=== PATIENT | female | born 1990 | race Caucasian/White ===

== ENCOUNTER 2019-01-26 12:16 | Outpatient (CLI) | payer OTHER ==
[2019-01-26] MEDS ORDERED: GADOBUTROL 7.5 MMOL/7.5 ML VIAL ONE (13:41)
[2019-01-26] MEDS ORDERED: GADOBUTROL 7.5 MMOL/7.5 ML VIAL IVP ONE (14:10)
--- NOTE | 2019-01-27 15:35 | MRI Report ---
Reason: GANGLION, LEFT HERNÁNDEZ Procedure Date: 01/26/2019 Accession Number: [id number] / [id number] Procedure: MRI - Hand LT W/WO CPT Code: FULL RESULT: EXAM: LEFT HAND MRI WITHOUT AND WITH CONTRAST EXAM DATE: 01/26/2019 02:00 PM. CLINICAL HISTORY: Ganglion, left hand. COMPARISON: None. TECHNIQUE: Multiplanar, multisequence T1-weighted and fluid-sensitive sequences of the hand before and after administration of intravenous contrast. IV contrast: 7.5 mL Gadavist. Other: None. FINDINGS: Bones: No fractures or subluxations. No marrow edema or abnormal enhancement. No bone lesions. Cartilage: The articular cartilage is unremarkable. Ligaments: The visualized collateral ligaments are intact. Tendons: The flexor and extensor tendons are intact. Ovoid focus of T1 hypointense and fluid sensitive hyperintense signal with minimal peripheral enhancement at the volar aspect third flexor tendon at the level of the proximal phalanx diaphysis measuring 0.3 x 0.4 x 0.5 cm, AP by transverse by longitudinal.. Musculature: No edema or fatty atrophy. Other: No joint effusions or synovitis. The subcutaneous tissues are unremarkable. No abscess or cellulitis. IMPRESSION: 1. A 0.5 cm cystic focus at the volar aspect third flexor tendon, suggestive of ganglion. Other mass lesion thought less likely given the minimal peripheral enhancement. 2. Underlying third flexor tendon normal in morphology. RADIA
== END 2019-01-26 12:17 | disposition home or self-care (01) ==
LOC: DI 12:16
PROVIDERS: ATTEND Orthopaedic Surgery
DX: M67.442 Ganglion, left hand (principal)
CPT/HCPCS: 73220; A9585

== ENCOUNTER 2019-03-04 07:59 | Day surgery (SDC) | payer OTHER ==
[2019-03-04] MEDS ORDERED: KETOROLAC 30 MG/ML VIAL IVP ONE (08:00)
[2019-03-04] MEDS ORDERED: ONDANSETRON 4 MG/2 ML VIAL IVP ONE (08:00)
[2019-03-04] MEDS ORDERED: fentaNYL 100 MCG/2 ML VIAL IVP ONE (08:00)
[2019-03-04] MEDS ORDERED: MIDAZOLAM 2 MG/2 ML VIAL IVP ONE (08:00)
[2019-03-04] MEDS ORDERED: LACTATED RINGERS 1,000 ML IV ONE (08:18)
[2019-03-04] MEDS ORDERED: CEFAZOLIN SODIUM IN 0.9 % NACL 2 GM/100 ML BAG IV ONE (08:20)
[2019-03-04 08:35] LABS: HCG UR QUAL NEGATIVE
--- NOTE | 2019-03-04 08:47 | ANESTHESIA ---
Pre-Anesthesia VS, & Labs - Diagnosis left long finger volar mass - Procedure left long finger volar mass excision Vital Signs: Temp Pulse Resp BP Pulse Ox 36.3 C L 71 16 107/62 97 03/04/19 08:17 03/04/19 08:17 03/04/19 08:17 03/04/19 08:17 03/04/19 08:17 Height 5 ft 9 in Weight (kg) 72.9 kg - NPO >8 hours - Is Patient ?: No Home Medications and Allergies Home Medications: Ambulatory Orders Pnv No.95/Ferrous Fum/Folic AC [ Caplet] 1 each PO DAILY 03/03/19 Sertraline [Zoloft] 50 mg PO DAILY 03/03/19 Pnv No.95/Ferrous Fum/Folic AC [ Caplet] 1 each PO DAILY 03/03/19 Sertraline [Zoloft] 50 mg PO DAILY 03/03/19 Allergies/Adverse Reactions: Allergies Allergy/AdvReac Type Severity Reaction Status Date / Time No Known Drug Allergies Allergy Verified 03/03/19 13:18 Anes History & Medical History - Anesthetic History Anesthesia Complications: reports: No previous complications Family history of Anesthesia Complications: Denies Family history of Malignant Hyperthermia: Denies - Medical History Cardiovascular: reports: None Pulmonary: reports: None Gastrointestinal: reports: None Urinary: reports: None Musculoskeletal: reports: None Skin: reports: None Smoking Status: Never smoker Psychosocial: reports: No issues indicated - Surgical History Gynecologic: Other Exam General: Alert Dental: WNL Mouth Opening: Greater than 4 Fingerbreadths Neck Mobility: Normal Mallampati classification: II Thyromental Distance: greater than 6 cm Respiratory: Lungs clear Cardiovascular: Regular rate, Normal S1, Normal S2 Mental/Cognitive Status: Alert/Oriented X3 Plan Anesthesia Type: MAC Consent for Procedure(s) Verified and Reviewed: Yes Code Status: Attempt Resuscitation ASA classification: 1-Healthy patient Is this case an emergency?: Yes
[2019-03-04] MEDS ORDERED: LIDOCAINE-MPF 1% 30 ML VIAL ONE (09:34)
[2019-03-04] MEDS ORDERED: LIDOCAINE 1% 50 ML MDV SUBQ ONE ×2 (09:57)
[2019-03-04] MEDS ORDERED: oxyCODONE 5 MG TABLET PO PRN (10:49)
[2019-03-04] MEDS ORDERED: ONDANSETRON 4 MG/2 ML VIAL IVP PRN (10:49)
--- NOTE | 2019-03-04 10:53 | OPERATIVE REPORT ---
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 Specimen(s) Information: Left long finger volar cyst sent for permanent pathology Complication(s): None Condition: Stable to recovery Indications for Surgery: The patient is a 28-year-old right hand dominant female with a approximately 1 year history of a left long finger volar mass near the MCP J flexion crease. The mass has become increasingly painful with gripping activities over the last several months. X-rays were normal. Exam demonstrated an approximately 3 mm in diameter somewhat mobile mass overlying the left long finger flexor tendon, that did not move with digital flexion or extension. The mass was mobile medial to lateral, and had a negative Tinel at the mass. MRI demonstrated a homogenous T2 hyperintense mass overlying the volar aspect of the flexor tendon of the long finger, there was subtle peripheral rim enhancement following administration of IV gadolinium, consistent with a fluid-filled cyst.. The patient was counseled on treatment options to include continued nonoperative treatment in the form of activity modification, possible aspiration of the mass versus surgical excision. Risks of surgery were discussed to include bleeding, infection, postoperative stiffness, mass recurrence, damage to nerves, vessels, tendons, ligaments, bone and cartilage and anesthesia complications to include medication side effects and allergic reactions and even . After discussion, they wished to proceed. Findings: Left long finger volar cyst with clear gelatinous fluid consistent with a left long finger volar retinacular cyst Descriptions of Procedure: The patient was met in the Preoperative Holding Area, at which time preoperative paperwork was confirmed. The left hand with an arrow pointing to the left long finger was signed. The mass was then marked with patient participation with 4 dots medial lateral and proximal distal. The patient was then brought to Main Operating Room, placed supine on the Operating Room table, and monitored anesthesia care was initiated. A timeout was conducted to confirm correct patient, correct extremity and correct procedure and also to confirm presence and sterility of all required equipment and to confirm that antibiotics were being administered. After this was confirmed, local anesthesia was administered using approximately 6 mL's of 1% lidocaine plain in the palm, subcutaneous tissues and proximal phalanx of the left long finger. The operative extremity was then prepped and draped over a hand table in the normal sterile fashion after a well-padded tourniquet was placed on the proximal arm. Following draping, a repeat timeout was conducted to confirm the correct patient, correct extremity and correct procedure and to confirm that antibiotics had been administered within 30 minutes of incision time. Adson forceps were then used to gently test the area of the planned incision for anesthesia. No response to stimuli was noted. The operative extremity was then exsanguinated with an Esmarch bandage and tourniquet inflated to 250mmHg. A V-shaped incision was made centered over the the metacarpophalangeal joint crease, with apex ulnar, with a #15 blade through the skin. Dissection was further carried out with tenotomy scissors and retractors until the mass was visualized arising from just ulnar to the midline of the flexor tendon sheath. The mass was carefully dissected, removing all soft tissue attachments surrounding the mass down to the flexor tendon sheath. The mass was then grasped with an Allis clamp and excised off of the flexor tendon sheath, with a small window of the sheath removed to prevent mass recurrence. The mass contained homogeneous gelatinous material consistent with a volar retinacular cyst. The mass was then passed off the back table in a sterile specimen cup fixed in formalin. The wound was then copiously irrigated. Pressure was held on the wound with a wet Ray-Danielle and the tourniquet deflated. After approximately 5 minutes of manual pressure the wound was inspected, and hemostasis ensured. The skin was then closed with 4-0 nylon in interrupted horizontal mattress fashion with a corner stitch. The wound was dressed with xeroform, plain 4x4 gauze, fluffs, webril followed by a gently compressive Raheel bandage. The tourniquet was let down. The patient was then awakened from general anesthesia without complication, brought to the Post Anesthesia Care for further recovery. Postoperative Plan: 1. The patient will be discharged from the Same Day Surgery Unit when discharge criteria are met. 2. The patient will remain in the post-operative dressing for 5 days. 3. They have been instructed to start early finger ROM and not to lift anything heavier than a cup of coffee until follow-up. 4. Expect return to full activites in 4-6 weeks.
[2019-03-04 11:07] VITALS: BP 108/48
== END 2019-03-04 08:00 | disposition home or self-care (01) ==
LOC: SDS 07:59
PROVIDERS: ATTEND Orthopaedic Surgery
PROC: 0LB80ZZ Excision of Left Hand Tendon, Open Approach (ICD-10-PCS; principal; 2019-03-04 09:15)
DX: M67.442 Ganglion, left hand (principal)
CPT/HCPCS: 26160; 81025; J0690; J7120